=== PATIENT | female | born 1945 | race Caucasian/White ===

== ENCOUNTER → 2016-07-15 10:30 | Outpatient (CLI) | payer MEDICARE, OTHER ==
[2009-11-28 12:05] VITALS: BMI 31.5
== END | disposition home or self-care (01) ==
LOC: D.RAD 10:30 → D.RT 11:00
DX: D86.9 Sarcoidosis, unspecified (principal)

== ENCOUNTER → 2016-09-23 07:52 | Outpatient (CLI) | payer MEDICARE, OTHER ==
[2009-11-28 12:05] VITALS: BMI 31.5
[2016-09-23 08:29] LABS: CREATININE - SERUM 1.1 mg/dL (0.6-1.3)
== END | disposition home or self-care (01) ==
LOC: D.CT 07:52
PROVIDERS: Family Medicine
DX: R11.2 Nausea with vomiting, unspecified (principal)

== ENCOUNTER → 2017-03-29 16:58 | Outpatient (CLI) | payer MEDICARE, OTHER ==
[2009-11-28 12:05] VITALS: BMI 31.5
== END | disposition home or self-care (01) ==
LOC: D.MAMMO 15:30
DX: Z12.31 Encounter for screening mammogram for malignant neoplasm of breast (principal)

== ENCOUNTER → 2017-06-21 09:19 | Outpatient (CLI) | payer MEDICARE, OTHER ==
[2009-11-28 12:05] VITALS: BMI 31.5
== END | disposition home or self-care (01) ==
LOC: D.RT 09:19
DX: D86.9 Sarcoidosis, unspecified (principal)

== ENCOUNTER → 2017-12-27 09:24 | Outpatient (CLI) | payer MEDICARE, OTHER ==
[2009-11-28 12:05] VITALS: BMI 31.5
== END | disposition home or self-care (01) ==
LOC: D.RT 09:24
DX: D86.9 Sarcoidosis, unspecified (principal)

== ENCOUNTER → 2018-06-29 09:45 | Outpatient (CLI) | payer MEDICARE, OTHER ==
[2009-11-28 12:05] VITALS: BMI 31.5
== END | disposition home or self-care (01) ==
LOC: D.RT 09:45
PROVIDERS: ATTEND Internal Medicine Pulmonary Disease
DX: D86.9 Sarcoidosis, unspecified (principal)

== ENCOUNTER → 2018-06-29 15:51 | Outpatient (CLI) | payer MEDICARE, OTHER ==
[2009-11-28 12:05] VITALS: BMI 31.5
== END | disposition home or self-care (01) ==
LOC: D.MAMMO 11:15
PROVIDERS: ATTEND Clinical Nurse Specialist Adult Health
DX: Z12.31 Encounter for screening mammogram for malignant neoplasm of breast (principal)

== ENCOUNTER 2019-07-31 13:43 | Inpatient (IN) | payer MEDICARE, OTHER ==
[~2019-07-31] VITALS: Ht 157.5 cm; Wt 67.5 kg
[2019-07-31 14:24] LABS: BASOPHILS 0 % (0-2); EOSINOPHILS 0.5 % (0-7); HEMATOCRIT 39.6 % (36.0-48.0); HEMOGLOBIN 12.7 g/dL (12-16); IMMATURE GRANULOCYTES 0.5 % (0-5); LYMPHOCYTES 13.8 % (15-50); MCHC 32.1 g/dL (31.0-37.0); MCV 90.4 fL (80.0-100.0); MEAN PLATELET VOLUME 10.6 fL (7.4-10.4); MONOCYTES 6.4 % (2-11); NEUTROPHILS 78.8 % (40-80); PLATELET COUNT 75 10x3/uL (130-400); RBC 4.38 10x6/uL (4.00-5.40); RDW 15.1 % (11.5-14.5); WBC 2.2 10x3/uL (4.8-10.8)
[2019-07-31] MEDS ORDERED: TOPROL XL50 MG PO (14:39)
[2019-07-31] MEDS ORDERED: GLUCOPHAGE1000 MG PO (14:39)
[2019-07-31] MEDS ORDERED: PREDNISONE5 MG PO (14:40)
[2019-07-31] MEDS ORDERED: ZYLOPRIM100 MG PO (14:40)
[2019-07-31 14:41] LABS: APTT 30.1 SECONDS (22.8-39.4); INR 1.04 (0.85-1.17); PROTIME 13.6 SECONDS (11.6-15.0)
[2019-07-31] MEDS ORDERED: CRESTOR5 MG PO (14:41)
[2019-07-31] MEDS ORDERED: PLAVIX75 MG PO (14:41)
[2019-07-31] MEDS ORDERED: VITAMIN D1000 UNIT PO (14:41)
[2019-07-31] MEDS ORDERED: ZOLOFT50 MG PO (14:41)
[2019-07-31] MEDS ORDERED: ASPIRIN81 MG PO (14:42)
[2019-07-31] MEDS ORDERED: ULTRAM50 MG PO (14:42)
[2019-07-31] MEDS ORDERED: ZOFRAN ODT4 MG/UDTAB PO (14:42)
[2019-07-31] MEDS ORDERED: BUMEX2 MG PO (14:43)
[2019-07-31 14:45] LABS: PLATELET ESTIMATE DECREASED
[2019-07-31 14:46] LABS: ROULEAUX OCC
[2019-07-31 14:57] LABS: CALC OSMOLALITY 276 mosm/kg (275-300); CALCIUM 9.1 mg/dL (8.5-10.1); CARBON DIOXIDE 27.5 mmol/L (21.0-32.0); CHLORIDE - SERUM 99 mmol/L (98-107); CREATININE - SERUM 1.5 mg/dL (0.6-1.3); GLUCOSE 166 mg/dL (74-106); POTASSIUM - SERUM 3.7 mmol/L (3.5-5.1); SODIUM 136 mmol/L (136-145); UREA NITROGEN 16 mg/dL (7-18); eGFR NON AFRICAN AMERICAN 36 mL/min (90-120)
[2019-07-31 15:07] LABS: ALBUMIN 3.3 g/dL (3.4-5.0); ALKALINE PHOSPHATASE 58 U/L (30-120); ALT (SGPT) 60 U/L (10-68); BILIRUBIN - TOTAL 0.74 mg/dL (0.2-1.3); CKMB 0.2 U/L (0.0-3.6); CREATINE KINASE 40 UL (21-215); PROTEIN - SERUM 6.1 g/dL (6.4-8.2); TROPONIN-I < 0.017 ng/mL (0.000-0.060)
[2019-07-31 16:27] LABS: GLUCOSE NEGATIVE (NEGATIVE); NITRITE NEGATIVE (NEGATIVE); UROBILINOGEN NORMAL (NORMAL)
[2019-07-31 16:28] LABS: BILIRUBIN NEGATIVE (NEGATIVE); KETONE NEGATIVE (NEGATIVE); RED CELLS - URINE 0-5 /hpf (0-5); WHITE CELLS - URINE >50 /hpf (NEGATIVE)
[2019-07-31 16:29] LABS: BACTERIA MODERATE /hpf (NEGATIVE); EPITHELIAL CELLS 0-5 /hpf (0-5)
[2019-07-31 16:41] VITALS: BP 152/49
--- NOTE | 2019-07-31 18:25 | NUR ---
lEVAQUIN 750MG 30ML INFUSED, TRANSFERRED WITH IT INFUSING. LR ABOUT 300 INFUSED IN ER TRANSFERRED WITH IT INFUSING.
--- NOTE | 2019-07-31 18:48 | NUR ---
PT ARRIVED ON UNIT VIA STRETCHER ESCORTED BY ER NURSE AND SPOUSE. IV TO LEFT FA SALINE LOCKED. RE-STARTED BOLUS OF LR AND LEVOQUIN.
--- NOTE | 2019-07-31 19:00 | NUR ---
GAVE TURKEY SANDWICH TRAY...PT ATE 1/2 SANDWICH.
--- NOTE | 2019-07-31 19:10 | NUR ---
SCD'S PLACED ON BLE PER ORDER. PLACED YELLOW GOWN, GRIPPER SOCKS AND TURNED ON BED ALARM FOR FALL PRECAUTIONS.
--- NOTE | 2019-07-31 19:20 | NUR ---
TELEMETRY PLACED PER ORDER. PT READING [address] AT THIS ASSESSMENT.
--- NOTE | 2019-07-31 19:34 | NUR ---
MAG LEVEL 1.5 REQUIRING COVERAGE WITH 400 MG MAGOX PO Q4HR X2 DOSES. GAVE FIRST DOSE NOW.
--- NOTE | 2019-07-31 19:40 | NUR ---
GAVE TYLENOL 650 MG PO AND ZOFRAN 4 MG IVP PER REQUEST FOR CHILLS AND NAUSEA. FSBS 158 THIS CHECK...HELD SLIDING SCALE COVERAGE FOR NOW...PT TOOK METFORMIN AT HOME AND HAVING LIMITED INTAKE.
--- NOTE | 2019-07-31 19:50 | NUR ---
MOST RECENT LACTIC ACID LEVEL 3.6 ....NOTIFIED FLAQUITO SCHMITT IN PERSON SHE IS ON FLOOR ROUNDING ON PTS.
[2019-07-31 19:52] VITALS: BP 134/50; BMI 25.3
[2019-07-31] MEDS ORDERED: VITAMIN B-12500 MCG PO (20:01)
--- NOTE | 2019-07-31 20:05 | NUR ---
LAILA FROM ADMISSIONS HERE TO LOCK UP PTS WALLET. WITNESSED CONTENTS TO BE LOCKED UP WITH HER AND PATIENT.
--- NOTE | 2019-07-31 20:10 | NUR ---
HOME MED REC RECONCILLED. PAGED CA TO REVIEW.
--- NOTE | 2019-07-31 20:35 | NUR ---
ASSISTED UP TO VOID. POSITIONED BACK IN BED FOR COMFORT.
[2019-07-31 20:37] VITALS: BP 137/51
--- NOTE | 2019-07-31 20:41 | NUR ---
ADMISSION ASSESSMENT AND HISTORY COMPLETE.
--- NOTE | 2019-07-31 21:21 | NUR ---
HS MEDICATIONS GIVEN. ALSO GAVE JELLO FOR SNACK. WILL CONTINUE TO MONITOR FOR NEEDS.
[2019-07-31 21:41] LABS: CKMB 0.3 U/L (0.0-3.6); CREATINE KINASE 35 UL (21-215); TROPONIN-I < 0.017 ng/mL (0.000-0.060)
[2019-08-01 00:50] VITALS: BP 124/57
[2019-08-01 02:47] LABS: HEMATOCRIT 33.8 % (36.0-48.0); MCH 29.3 pg (26.0-34.0); MCHC 32.5 g/dL (31.0-37.0); MCV 90.1 fL (80.0-100.0); MEAN PLATELET VOLUME 11.1 fL (7.4-10.4); RBC 3.75 10x6/uL (4.00-5.40); RDW 15.2 % (11.5-14.5)
[2019-08-01 02:48] LABS: PLATELET COUNT 57 10x3/uL (130-400)
[2019-08-01 02:51] LABS: WBC 1.1 10x3/uL (4.8-10.8)
[2019-08-01 02:58] LABS: ALBUMIN 2.7 g/dL (3.4-5.0); ALKALINE PHOSPHATASE 54 U/L (30-120); ALT (SGPT) 50 U/L (10-68); BILIRUBIN - TOTAL 0.73 mg/dL (0.2-1.3); CALC OSMOLALITY 273 mosm/kg (275-300); CALCIUM 8.3 mg/dL (8.5-10.1); CARBON DIOXIDE 28.2 mmol/L (21.0-32.0); CHLORIDE - SERUM 102 mmol/L (98-107); CKMB 0.3 U/L (0.0-3.6); CREATINE KINASE 38 UL (21-215); CREATININE - SERUM 1.3 mg/dL (0.6-1.3); GLUCOSE 140 mg/dL (74-106); MAGNESIUM - SERUM 1.3 mg/dL (1.8-2.4); POTASSIUM - SERUM 4.2 mmol/L (3.5-5.1); PROTEIN - SERUM 5.5 g/dL (6.4-8.2); SODIUM 135 mmol/L (136-145); UREA NITROGEN 17 mg/dL (7-18); eGFR NON AFRICAN AMERICAN 42 mL/min (90-120)
[2019-08-01 03:03] LABS: TROPONIN-I < 0.017 ng/mL (0.000-0.060)
[2019-08-01 03:32] LABS: BASOPHILS 2 % (0-2); LYMPHOCYTES 24 % (15-50); MONOCYTES 2 % (2-11); NEUTROPHILS 56 % (40-80); PLATELET ESTIMATE DECREASED
--- NOTE | 2019-08-01 04:00 | NUR ---
WBC 1.1 AT LAST LAB CHECK REQUIRING FOR PT TO BE PLACED IN REVERSE ISOLATION. ORDER PLACED PER PROTOCAL AND SIGNAGE PLACED ON DOOR.
--- NOTE | 2019-08-01 04:18 | NUR ---
MAG LEVEL 1.3 AT LAST LAB CHECK REQUIRING COVERAGE WITH 400 MG MAG OX PO Q4HR X4 DOSES. FIRST DOSE GIVEN. WILL PASS ALONG IN REPORT THE NEED FOR NEXT DOSES AT 0815, 1215, AND 1615.
[2019-08-01 06:48] VITALS: BP 150/62
[2019-08-01 08:24] VITALS: BP 116/48
[2019-08-01 09:04] LABS: CKMB 0.3 U/L (0.0-3.6); CREATINE KINASE 41 UL (21-215); TROPONIN-I < 0.017 ng/mL (0.000-0.060)
--- NOTE | 2019-08-01 09:18 | NUR ---
SHE IS ALERT, TALKING. IN REVERSE ISOLATION WBC 1.1 TODAY. THE CALL LIGHT IS WITHIN REACH, THE BED ALARM IS ON.
[2019-08-01 10:20] VITALS: BMI 25.9
[2019-08-01 12:14] VITALS: BP 108/36
[2019-08-01 15:43] VITALS: Ht 157.5 cm; Wt 67.5 kg
[2019-08-01 16:45] VITALS: BP 150/66
[2019-08-01 20:57] VITALS: BP 120/45
[2019-08-02] VITALS (7 sets, daily range): BP systolic 98–151; BP diastolic 34–76
--- NOTE | 2019-08-02 06:55 | NUR ---
ALERT AND ORIENTED. C/O PAIN. NO S/S OF ACUTE DISTRESS NOTED. HAVING NAUSEA THIS AM. ON NEUTROPENIC PRECAUTIONS. IV TO LEFT FOREARM, NS INFUSING @ 125ML/HR. SITE PATENT WITHOUT REDNESS OR SWELLING. ELEVATED TEMP THIS AM OF 101.9, BP 130/51, HR 104, R 22, AND O2 97% RA. NOTIFIED CA HIRSCH APN OF VITALS. SHE ORDERED LACTIC ACID AND CHEST XR. DENIES ANY NEEDS AT THIS TIME. CALL LIGHT IN REACH. WILL CONTINUE TO MONITOR.
--- NOTE | 2019-08-02 08:00 | NUR ---
GAVE PATIENT TYLENOL FOR PAIN AND FEVER. CRITICAL LAB THIS AM, PLATELETS OF 37. NOTIFIED DR. VEGA.
[2019-08-02 09:09] LABS: BASOPHILS 0.5 % (0-2); EOSINOPHILS 0 % (0-7); HEMATOCRIT 34.3 % (36.0-48.0); IMMATURE GRANULOCYTES 1.4 % (0-5); LYMPHOCYTES 8.9 % (15-50); MCH 28.7 pg (26.0-34.0); MCHC 32.1 g/dL (31.0-37.0); MCV 89.6 fL (80.0-100.0); MEAN PLATELET VOLUME 11.2 fL (7.4-10.4); MONOCYTES 3.3 % (2-11); NEUTROPHILS 85.9 % (40-80); RBC 3.83 10x6/uL (4.00-5.40); RDW 15.3 % (11.5-14.5)
[2019-08-02 09:10] LABS: WBC 2.1 10x3/uL (4.8-10.8)
[2019-08-02 09:12] LABS: PLATELET COUNT 37 10x3/uL (130-400)
[2019-08-02 09:21] LABS: ALBUMIN 2.6 g/dL (3.4-5.0); BILIRUBIN - TOTAL 0.73 mg/dL (0.2-1.3); CALCIUM 7.4 mg/dL (8.5-10.1); CARBON DIOXIDE 27.2 mmol/L (21.0-32.0); CREATININE - SERUM 1.1 mg/dL (0.6-1.3); MAGNESIUM - SERUM 1.4 mg/dL (1.8-2.4); PROTEIN - SERUM 5.6 g/dL (6.4-8.2)
[2019-08-02 09:22] LABS: ANION GAP 10.1 mmol/L (8-16); POTASSIUM - SERUM 3.3 mmol/L (3.5-5.1)
[2019-08-02 09:34] LABS: PLATELET ESTIMATE DECREASED
[2019-08-02 10:10] LABS: HEPATITIS C ANTIBODY <0.1 S/CO RAT (0.0-0.9)
--- NOTE | 2019-08-02 12:54 | MORECARE ---
CASE MANAGEMENT DISCHARGE SUMMARY PATIENT: RODRIGO REVELES UNIT: [id number] ADM DATE: 07/31/19 AGE: 74 : 45 SEX: F ROOM/BED: D.2207 AUTHOR: EMELIA RUDOLPH PHYSICIAN: REFERRING PHYSICIAN: MYRIAM TRIPLETT MD DATE OF SERVICE: 08/02/19 Discharge Plan Patient Name: RODRIGO REVELES [facility] [facility] 1945 Planned Disposition: Home or Self Care Anticipated Discharge Date: Discharge Date: Expected LOS: Initial Reviewer: [email or web address] Initial Review Date: 07/31/2019 Generated: 08/02/19 1:54 pm DCPIA - Discharge Planning Initial Assessment Updated by [email or web address]: Radha Cornell on 08/02/19 12:54 pm * Is the patient Alert and Oriented? Yes * How many steps to enter\exit or inside your home? 2/RAMP * PCP SHOAIB * Pharmacy [facility] * Preadmission Environment Home with Family * ADLs Independent * Equipment Cane Glucometer Rolling Walker * List name and contact numbers for known caregivers / representatives who currently or will assist patient after discharge: IRISH REVELES (SPOUSE) [phone] * Verbal permission to speak to the caregivers and representatives has been obtained from the patient. N/A * Community resources currently utilized None * Additional services required to return to the preadmission environment? No * Can the patient safely return to the preadmission environment? Yes * Has this patient been hospitalized within the prior 30 days at any hospital? No Patient Name: RODRIGO REVELES Page 38315 at 1254 All edits/amendments must be made on the electronic document DICTATION DATE: 08/02/19 1254 CHEMICAL LABORATORY CHIEF: CHAVEZ 08/02/19 1254 RPT#: [id number] DC DATE: STATUS: ADM IN [facility] [address] [place] [address] END OF REPORT
--- NOTE | 2019-08-02 13:09 | MORECARE ---
CASE MANAGEMENT DISCHARGE SUMMARY PATIENT: RODRIGO REVELES UNIT: [id number] ADM DATE: 07/31/19 AGE: 74 : 45 SEX: F ROOM/BED: D.8665 AUTHOR: EMELIA RUDOLPH PHYSICIAN: REFERRING PHYSICIAN: MYRIAM TRIPLETT MD DATE OF SERVICE: 08/02/19 Discharge Plan Patient Name: RODRIGO REVELES Facility: [facility]:[place] : 1945 Planned Disposition: Home or Self Care Anticipated Discharge Date: Discharge Date: Expected LOS: Initial Reviewer: [email or web address] Initial Review Date: 07/31/2019 Generated: 08/02/19 2:09 pm Comments DCP- Discharge Planning Updated by [id number]: Radha Cornell on 08/02/19 12:[address] Patient Name: RODRIGO REVELES Admission Status: ER Accout number: [id number] Admission Date: 07-31-2019 : 1945 Admission Diagnosis:ACUTE PYELONEPHRITIS Attending: MYRIAM TRIPLETT Current LOS: 2 Anticipated DC Date: Planned Disposition: Home or Self Care Primary Insurance: MEDICARE A & B Discharge Planning Comments: CM met with patient to complete initial dc planning assessment. CM educated patient on the CM role and verbal consent given by patient to complete assessment. Patient lives at home with her spouse where she is independent with her care. At discharge patient plans to return home and feels this is a safe discharge. CM discussed availability of home health, rehab services, and medical equipment. She has a cane & a walker but does not use them. She also has a glucometer that she uses. 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 She did stated that Dr Randle took out a kidney stone on May 22. She has also had multiple dental procedures (teeth pulled, crowns, partials) last month at [facility] ( Dr Wood). She stated that she has been on 3 different abx. I let Emma know about her dental procedure.Patient denied known discharge needs at this time. CM will continue to follow and will assist as needed with dc plans/needs. Records Management Assistant: Radha Cornell DCPIA - Discharge Planning Initial Assessment Updated by [email or web address]: Radha Cornell on 08/02/19 12:54 pm * Is the patient Alert and Oriented? Yes * How many steps to enter\exit or inside your home? 2/RAMP * PCP SHOAIB * Pharmacy [facility] * Preadmission Environment Home with Family * ADLs Independent * Equipment Cane Glucometer Rolling Walker * List name and contact numbers for known caregivers / representatives who currently or will assist patient after discharge: IRISH REVELES (SPOUSE) [phone] * Verbal permission to speak to the caregivers and representatives has been obtained from the patient. N/A * Community resources currently utilized None * Additional services required to return to the preadmission environment? No * Can the patient safely return to the preadmission environment? Yes * Has this patient been hospitalized within the prior 30 days at any hospital? No Last DP export: 08/02/19 11:54 a Patient Name: RODRIGO REVELES Page 28599 at 1309 All edits/amendments must be made on the electronic document DICTATION DATE: 08/02/19 1309 SUBASSEMBLY SUPERVISOR: CHAVEZ 08/02/19 1309 RPT#: [id number] DC DATE: STATUS: ADM IN [facility] [address] [place] [address] END OF REPORT
--- NOTE | 2019-08-02 13:14 | NUR ---
I have reviewed this patient and I concur with the Shift Assessment completed by the Licensed Practical Nurse today this shift.
[2019-08-02 15:01] LABS: APTT 40.2 SECONDS (22.8-39.4)
[2019-08-02 15:02] LABS: INR 1.07 (0.85-1.17); PROTIME 13.9 SECONDS (11.6-15.0)
[2019-08-02 15:26] LABS: NITRITE NEGATIVE (NEGATIVE)
[2019-08-02 15:27] LABS: BILIRUBIN NEGATIVE (NEGATIVE); GLUCOSE NEGATIVE (NEGATIVE); KETONE NEGATIVE (NEGATIVE); UROBILINOGEN NORMAL (NORMAL)
[2019-08-02 15:28] LABS: BACTERIA FEW /hpf (NEGATIVE); EPITHELIAL CELLS 0-5 /hpf (0-5); RED CELLS - URINE 0-5 /hpf (0-5); WHITE CELLS - URINE 0-5 /hpf (NEGATIVE)
[2019-08-02 15:40] LABS: D-DIMER-QUANTITATIVE 2.94 ug/mLFEU (0.20-0.54)
--- NOTE | 2019-08-02 15:51 | NUR ---
PATIENT HAS A CRITICAL D-DIMER OF 2.94, NOTIFIED DR. VEGA.
--- NOTE | 2019-08-02 19:01 | NUR ---
RESTING IN BED, A&O. NO C/O PAIN. NO S/S OF ACUTE DISTRESS NOTED. DENIES ANY NEEDS AT THIS TIME. CALL LIGHT IN REACH. WILL CONTINUE TO MONITOR.
[2019-08-03] VITALS (7 sets, daily range): BP systolic 97–134; BP diastolic 34–56
[2019-08-03 07:36] LABS: BASOPHILS 1.3 % (0-2); EOSINOPHILS 0 % (0-7); HEMATOCRIT 30.7 % (36.0-48.0); HEMOGLOBIN 10.1 g/dL (12-16); IMMATURE GRANULOCYTES 0.6 % (0-5); LYMPHOCYTES 18.2 % (15-50); MCH 28.9 pg (26.0-34.0); MCHC 32.9 g/dL (31.0-37.0); MONOCYTES 9.4 % (2-11); NEUTROPHILS 70.5 % (40-80); RBC 3.49 10x6/uL (4.00-5.40); RDW 15.4 % (11.5-14.5)
[2019-08-03 07:43] LABS: PLATELET COUNT 29 10x3/uL (130-400); WBC 1.6 10x3/uL (4.8-10.8)
[2019-08-03 07:53] LABS: ALBUMIN 2.2 g/dL (3.4-5.0); ANION GAP 9.2 mmol/L (8-16); BILIRUBIN - TOTAL 0.54 mg/dL (0.2-1.3); CALCIUM 7.1 mg/dL (8.5-10.1); CARBON DIOXIDE 24.9 mmol/L (21.0-32.0); MAGNESIUM - SERUM 1.4 mg/dL (1.8-2.4); POTASSIUM - SERUM 3.1 mmol/L (3.5-5.1); PROTEIN - SERUM 4.9 g/dL (6.4-8.2)
--- NOTE | 2019-08-03 09:20 | NUR ---
SHE IS NAUSEATED, ZOFRAN PRN GIVEN. HER WBC IS 1.6 AND PLT 29. JENNA FABRICATION TECHNICIAN NOTIFIED OF THE LABS. THE CALL LIGHT IS WITHIN REACH AND HER IS AT THE BEDSIDE.
--- NOTE | 2019-08-03 16:27 | MORECARE ---
CASE MANAGEMENT DISCHARGE SUMMARY PATIENT: RODRIGO REVELES UNIT: [id number] ADM DATE: 07/31/19 AGE: 74 : 45 SEX: F ROOM/BED: D.2207 AUTHOR: EMELIA RUDOLPH PHYSICIAN: REFERRING PHYSICIAN: MYRIAM TRIPLETT MD DATE OF SERVICE: 08/03/19 Discharge Plan Patient Name: RODRIGO REVELES [facility]:[place] : 1945 Planned Disposition: Home or Self Care Anticipated Discharge Date: Discharge Date: Expected LOS: Initial Reviewer: [email or web address] Initial Review Date: 07/31/2019 Generated: 08/03/19 5:27 pm Comments DCP- Discharge Planning Updated by [email or web address]: Malaika Amaro on 08/03/19 3:[address] CM met with patient regarding DC needs/plans. Patient states she lives independently with her . PCP: Dr. Boyer. Pharmacy: [facility]. DME: walker, cane (does not use). Emergency contact: Irish Walker () [phone]. Denies need of HHS, Rehab, SNF. At time of DC, the patient's Irish Walker ([phone]) will drive her home. CM will assist PRN with DC plans. DCP- Discharge Planning Updated by [email or web address]: Radha Cornell on 08/02/19 12:[address] Patient Name: RODRIGO REVELES Admission Status: ER Accout number: [id number] Admission Date: 07-31-2019 : 1945 Admission Diagnosis:ACUTE PYELONEPHRITIS Attending: MYRIAM TRIPLETT Current LOS: 2 Anticipated DC Date: Planned Disposition: Home or Self Care Primary Insurance: MEDICARE A & B Discharge Planning Comments: CM met with patient to complete initial dc planning assessment. CM educated patient on the CM role and verbal consent given by patient to complete assessment. Patient lives at home with her spouse where she is independent with her care. At discharge patient plans to return home and feels this is a safe discharge. CM discussed availability of home health, rehab services, and medical equipment. She has a cane & a walker but does not use them. She also has a glucometer that she uses. 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 She did stated that Dr Randle took out a kidney stone on May 22. She has also had multiple dental procedures (teeth pulled, crowns, partials) last month at [facility] ( Dr Wood). She stated that she has been on 3 different abx. I let Emma know about her dental procedure.Patient denied known discharge needs at this time. CM will continue to follow and will assist as needed with dc plans/needs. Sales Product Specialist: Radha Cornell DCPIA - Discharge Planning Initial Assessment Updated by [id number]: Radha Cornell on 08/02/19 12:54 pm * Is the patient Alert and Oriented? Yes * How many steps to enter\exit or inside your home? 2/RAMP * PCP SHOAIB * Pharmacy [facility] * Preadmission Environment Home with Family * ADLs Independent * Equipment Cane Glucometer Rolling Walker * List name and contact numbers for known caregivers / representatives who currently or will assist patient after discharge: IRISH REVELES (SPOUSE) [phone] * Verbal permission to speak to the caregivers and representatives has been obtained from the patient. N/A * Community resources currently utilized None * Additional services required to return to the preadmission environment? No * Can the patient safely return to the preadmission environment? Yes * Has this patient been hospitalized within the prior 30 days at any hospital? No Last DP export: 08/02/19 12:09 p Patient Name: RODRIGO REVELES Page 10666 at 1627 All edits/amendments must be made on the electronic document DICTATION DATE: 08/03/191626 SOLUTIONS SPECIALIST: CHAVEZ 08/03/191626 RPT#: [id number] LA DATE: STATUS: ADM IN [facility] [address] [place] [address] END OF REPORT
--- NOTE | 2019-08-03 19:46 | NUR ---
PT SITTING UP ON SIDE OF BED AWAKE ALERT AND ORIENTED x4. NO SIGNS OF DISTRESS NOTED. RESPIRATRIONS EVEN AND UNLABORED. PT ENCOURAGED TO CALL FOR HELP WHEN GETTING IN AND OUT OF BED CALL LIGHT WITH IN REACH. WILL CONTINUE TO MONITOR
[2019-08-04] VITALS (7 sets, daily range): BP systolic 102–136; BP diastolic 27–87
--- NOTE | 2019-08-04 04:17 | NUR ---
PTS PERIPHERAL IV INFLATRATED TO LEFT ARM. IV REMOVED WITH END STILL INTACT. NO SIGNS OF DISTRESS NOTED AT THIS TIME. PRN PAIN MEDICATION GIVEN FOR HEADACHE. IV RESITED TO RIGHT FOREARM PT TOLERATED WELL. CALL LIGHT WITH IN REACH AND BED IS INLOWEST POSITION. WILL CONTINUE TO MONITOR
[2019-08-04 06:52] LABS: BASOPHILS 1.1 % (0-2); EOSINOPHILS 0.3 % (0-7); HEMATOCRIT 31.8 % (36.0-48.0); HEMOGLOBIN 10.4 g/dL (12-16); IMMATURE GRANULOCYTES 1.3 % (0-5); LYMPHOCYTES 12.5 % (15-50); MCH 28.7 pg (26.0-34.0); MCHC 32.7 g/dL (31.0-37.0); MCV 87.6 fL (80.0-100.0); MEAN PLATELET VOLUME 12.9 fL (7.4-10.4); MONOCYTES 6.6 % (2-11); NEUTROPHILS 78.2 % (40-80); RBC 3.63 10x6/uL (4.00-5.40); RDW 15.6 % (11.5-14.5)
[2019-08-04 06:56] LABS: PLATELET COUNT 42 10x3/uL (130-400); WBC 3.8 10x3/uL (4.8-10.8)
[2019-08-04 07:04] LABS: ALBUMIN 2.2 g/dL (3.4-5.0); BILIRUBIN - TOTAL 0.56 mg/dL (0.2-1.3); CARBON DIOXIDE 24.6 mmol/L (21.0-32.0); CREATININE - SERUM 1.2 mg/dL (0.6-1.3); PROTEIN - SERUM 4.6 g/dL (6.4-8.2)
[2019-08-04 07:37] LABS: MAGNESIUM - SERUM 1.9 mg/dL (1.8-2.4)
[2019-08-04 07:38] LABS: CALCIUM 6.8 mg/dL (8.5-10.1); POTASSIUM - SERUM 2.6 mmol/L (3.5-5.1)
--- NOTE | 2019-08-04 07:40 | NUR ---
PT IS RESTING IN BED WITH EYES OPEN. RESPIRATIONS ARE EVEN AND UNLABORED. PT IS AAO X 4. O2 VIA NC @ 2L. RIGHT FA PIV INFUSING WITHOUT DIFFICULTY. NEUTROPENIC ISOLATION PRECAUTIONS ARE IN PLACE. PT REPORTS SLIGHT NAUSEA. ZOFRAN INFUSING PER ORDER. PT DENIES HAVING HAD RECENT BM AND DENIES HAVING PASSED GAS "RECENTLY" PT REPORTS LAST BM ON 08/01/19. BS ARE HYPOACTIVE X 4 AND PT REPORTS TENDERNESS UPON PALPATION TO LUQ. BED IS IN THE LOWEST POSITION. CALL LIGHT AND BEDSIDE TABLE ARE WITHIN REACH. SIDE RAILS X 2. PT DENIES FURTHER NEEDS. WILL CONT TO MONITOR.
--- NOTE | 2019-08-04 10:08 | NUR ---
Nutrition follow-up: Diet: ADA consistent CHO PO intake 25-50% of meals Labs reviewed WT: 141# Will continue to provide food choices and honor food preferences within diet restrcitons. Will offer Glucerna Shake with meals. RDN following.
--- NOTE | 2019-08-04 11:15 | NUR ---
PT REPORTS NAUSEA AND SMALL AMOUNT OF EMESIS. PT REQUESTS DISSOLVABLE ZOFRAN. SEE EMAR.
[2019-08-04 11:58] LABS: PLATELET ESTIMATE DECREASED
[2019-08-04 12:00] LABS: ROULEAUX OCC
--- NOTE | 2019-08-04 12:32 | NUR ---
PER INFECTION CONTROL. PT TO REMAIN IN ISOLATION AND CONTINUE NEUTROPENIC PRECAUTIONS PLUS ADD GOGGLES/FACE SHIELD UNTIL COVID 19 TEST RESULTS RETURN. WILL CHANGE ISOLATION ACCORDINGLY.
--- NOTE | 2019-08-04 20:00 | NUR ---
PATIENT RESTING IN BED WATCHING TV. NO S/S OF ACUTE DISTRESS. NO C/O AT THIS TIME. PATIENT HAS 2L OR O2 NASAL CANNULA. PATIENT HAS RIGHT FOREARM, NORMAL SALINE @ 125 ML/HR. IV IS PATENT WITHOUT REDNESS, SWELLING, OR TENDERNESS. PATIENT HAS TELEMETRY: 89 SINUS RYTHM. PATIENT IS IN REVERSE ISOLATION. PATIENT IS A PARTIAL ASSIST TO THE BATHROOM. CALL LIGHT WITHIN REACH. WILL CONTINUE TO MONITOR.
--- NOTE | 2019-08-05 02:56 | NUR ---
I have reviewed this patient and I concur with the Shift Assessment completed by the Licensed Practical Nurse today this shift.
[2019-08-05 04:00] VITALS: BP 128/53
--- NOTE | 2019-08-05 07:10 | NUR ---
REC'D SITTING IN CHAIR IN ROOM AWAKE AND ALERT. RESP EVEN AND UNLABORED WITH NO DISTRESS NOTED. CAN EXPRESS NEEDS AND WANTS. NO C/O NOTED OR VOICED. ASSESSMENT COMPLETED. C/L IN REACH AT BEDSIDE.
[2019-08-05 08:12] LABS: ALBUMIN 1.9 g/dL (3.4-5.0); BILIRUBIN - TOTAL 0.57 mg/dL (0.2-1.3); CARBON DIOXIDE 22.5 mmol/L (21.0-32.0); CREATININE - SERUM 1.2 mg/dL (0.6-1.3); PROTEIN - SERUM 4.6 g/dL (6.4-8.2)
[2019-08-05 08:13] LABS: ANION GAP 10.7 mmol/L (8-16); MAGNESIUM - SERUM 1.4 mg/dL (1.8-2.4); POTASSIUM - SERUM 3.2 mmol/L (3.5-5.1)
[2019-08-05 08:15] LABS: CALCIUM 6.6 mg/dL (8.5-10.1)
[2019-08-05 08:30] LABS: BASOPHILS 2.7 % (0-2); EOSINOPHILS 0.7 % (0-7); HEMATOCRIT 28.2 % (36.0-48.0); HEMOGLOBIN 9.4 g/dL (12-16); IMMATURE GRANULOCYTES 0.7 % (0-5); LYMPHOCYTES 36.1 % (15-50); MCH 28.9 pg (26.0-34.0); MCHC 33.3 g/dL (31.0-37.0); MCV 86.8 fL (80.0-100.0); MEAN PLATELET VOLUME 11.6 fL (7.4-10.4); MONOCYTES 13.8 % (2-11); PLATELET COUNT 50 10x3/uL (130-400); RBC 3.25 10x6/uL (4.00-5.40); RDW 15.8 % (11.5-14.5); WBC 4.4 10x3/uL (4.8-10.8)
[2019-08-05 08:41] VITALS: BP 96/34
[2019-08-05 08:46] LABS: PLATELET ESTIMATE DECREASED
--- NOTE | 2019-08-05 11:43 | NUR ---
C/O MIDDLE BACK PAIN MEDICATED WITH ULTRAM PER ORDERS. C/L IN REACH AT BEDSIDE.
[2019-08-05 12:16] VITALS: BP 129/47
[2019-08-05 16:15] VITALS: BP 106/84
--- NOTE | 2019-08-05 18:24 | NUR ---
I have reviewed this patient and I concur with the Shift Assessment completed by the Licensed Practical Nurse today this shift.
--- NOTE | 2019-08-05 19:25 | NUR ---
ASSISTED PATIENT TO AND FROM . PATIENT DENIES OTHER NEEDS AT THIS TIME. BED IN LOWEST POSITION AND CALL LIGHT WITHIN REACH. ENCOURAGED THE PATIENT TO CALL IF SHE HAS NEEDS. WILL CONTINUE TO MONITOR.
[2019-08-05 19:27] LABS: ANION GAP 11.6 mmol/L (8-16); CARBON DIOXIDE 22.9 mmol/L (21.0-32.0); CREATININE - SERUM 1.1 mg/dL (0.6-1.3); MAGNESIUM - SERUM 1.4 mg/dL (1.8-2.4); POTASSIUM - SERUM 3.5 mmol/L (3.5-5.1)
[2019-08-05 19:28] LABS: CALCIUM 6.9 mg/dL (8.5-10.1)
[2019-08-05 20:00] VITALS: BP 132/67
--- NOTE | 2019-08-05 22:20 | NUR ---
ADMINISTERED MEDS PER ORDERS. PATIENT DENIES NEEDS. WILL CONTINUE TO MONITOR.
[2019-08-06] VITALS: BP 171/81
[2019-08-06 04:00] VITALS: BP 129/49
[2019-08-06 06:26] LABS: BASOPHILS 2.3 % (0-2); EOSINOPHILS 1.8 % (0-7); HEMATOCRIT 29.8 % (36.0-48.0); HEMOGLOBIN 9.7 g/dL (12-16); LYMPHOCYTES 44.5 % (15-50); MCH 28.2 pg (26.0-34.0); MCHC 32.6 g/dL (31.0-37.0); MCV 86.6 fL (80.0-100.0); MEAN PLATELET VOLUME 11.1 fL (7.4-10.4); MONOCYTES 12.1 % (2-11); NEUTROPHILS 38.3 % (40-80); RBC 3.44 10x6/uL (4.00-5.40); RDW 16.3 % (11.5-14.5)
[2019-08-06 06:35] LABS: PLATELET COUNT 67 10x3/uL (130-400)
[2019-08-06 06:44] LABS: ANION GAP 13.3 mmol/L (8-16); BILIRUBIN - TOTAL 0.67 mg/dL (0.2-1.3); CARBON DIOXIDE 24.4 mmol/L (21.0-32.0); POTASSIUM - SERUM 3.7 mmol/L (3.5-5.1); PROTEIN - SERUM 4.5 g/dL (6.4-8.2)
[2019-08-06 07:28] LABS: PLATELET ESTIMATE DECREASED
[2019-08-06 08:10] VITALS: BP 111/44
--- NOTE | 2019-08-06 09:37 | NUR ---
RESTING IN BED, NO DISTRESS NOTED, CONFUSED THIS AM, UP TO BATHROOM WITH ASSIST OF 1, NO IV ACCESS, CONT TO MONITOR SUGARS
--- NOTE | 2019-08-06 11:30 | NUR ---
PT STATES THAT SHE FEELS SHE MAY HAVE HAD A STROKE, STATES THAT SHE HAS BEEN SEEING THINGS AND FEELS THAT SHE ISNT ABLE TO SAY WHAT SHE WANTS TO SAY, HAVING TROUBLE FINDING WORDS, IV STARTED IN R WRIST FOR ZOFRAN, PROTONIX AND SALINE,GOING TO CT, CONT TO MONITOR
[2019-08-06 12:19] VITALS: BP 163/74
[2019-08-06 15:40] LABS: ANION GAP 11.4 mmol/L (8-16); CALCIUM 7.2 mg/dL (8.5-10.1); CARBON DIOXIDE 24.9 mmol/L (21.0-32.0); CREATININE - SERUM 0.9 mg/dL (0.6-1.3); MAGNESIUM - SERUM 1.4 mg/dL (1.8-2.4); POTASSIUM - SERUM 3.3 mmol/L (3.5-5.1)
[2019-08-06 16:44] VITALS: BP 146/59
--- NOTE | 2019-08-06 19:45 | NUR ---
ASSISTED UP TO BR TO VOID. LT SIDED WEAKNESS NOTED FROM OLD CVA. GAIT IS UNSTEADY. ALERT AND ORIENTED X4. RESP IRREG. NONPROD COUGH. O2 @ 3L/NC. TELEMETRY SHOWS SR WITH RATE OF 93. SCDS BILAT. NS @ 75 MLHR INFUSING IN RT FOREARM WITH ZOFRAN DRIP @ 4.7 MLHR. BRUISES NOTED TO BUE. SR ELEVATED X2. CL IN REACH. DENIES PAIN.
[2019-08-06 20:00] VITALS: BP 150/59
[2019-08-07] VITALS (7 sets, daily range): BP systolic 131–152; BP diastolic 53–76
[2019-08-07 04:52] LABS: BASOPHILS 0.9 % (0-2); EOSINOPHILS 0.9 % (0-7); HEMATOCRIT 27.7 % (36.0-48.0); HEMOGLOBIN 9.1 g/dL (12-16); IMMATURE GRANULOCYTES 0.7 % (0-5); LYMPHOCYTES 51.4 % (15-50); MCH 28.4 pg (26.0-34.0); MCHC 32.9 g/dL (31.0-37.0); MCV 86.6 fL (80.0-100.0); MEAN PLATELET VOLUME 10.3 fL (7.4-10.4); MONOCYTES 10.8 % (2-11); NEUTROPHILS 35.3 % (40-80); PLATELET COUNT 80 10x3/uL (130-400); RDW 16.5 % (11.5-14.5); WBC 4.2 10x3/uL (4.8-10.8)
[2019-08-07 05:06] LABS: ALBUMIN 1.9 g/dL (3.4-5.0); BILIRUBIN - TOTAL 0.73 mg/dL (0.2-1.3); CARBON DIOXIDE 27.9 mmol/L (21.0-32.0); CREATININE - SERUM 0.9 mg/dL (0.6-1.3); PROTEIN - SERUM 4.7 g/dL (6.4-8.2)
[2019-08-07 05:09] LABS: ANION GAP 7.2 mmol/L (8-16); POTASSIUM - SERUM 4.1 mmol/L (3.5-5.1)
--- NOTE | 2019-08-07 06:25 | NUR ---
RESTED WELL TONIGHT. UP TO BR TO VOID SEVERAL TIMES. HAS HAD SOME NAUSEA DESPITE ZOFRAN DRIP BUT NO VOMITING. DAUGHTER AT BEDSIDE. NO DISTRESS. CL IN REACH.
--- NOTE | 2019-08-07 09:10 | EC ---
PATIENT:RORDIGO REVELES DATE OF SERVICE: 07/31/19 SEX: F MEDICAL RECORD: [id number] DATE OF : [birth year] LOCATION:D.[facility] AGE OF PATIENT: 74 ADMISSION DATE: 07/31/19 REFERRING PHYSICIAN: INTERPRETING PHYSICIAN: HUSSAIN CORDOVA MD ECHOCARDIOGRAM REPORT ECHO CHARGES 4 ECHO COMPLETE Date: 08/04/19 CLINICAL DIAGNOSIS: FEVER/SEPTIC ASSESS FOR ENDOCARDITIS ECHOCARDIOGRAPHIC MEASUREMENTS (adult normal given) AC root (d.<3.7cm) 3.6 cm LV Septum d (<1.2 cm> 1.3 cm Valve Excursion 1.7 cm LV Septum (systole) 1.4 cm Left Atria (s.<4.0cm> 2.9 cm LVPW d(<1.2cm) 1.3 cm RV (d.<2.3cm) 3.0 cm LVPW (sytole) 1.6 cm LV diastole(<5.6CM) 5.8 cm MV E-F(>70mm/sec) cm LV systole 4.8 cm LVOT Diameter 1.5 cm MV exc.(>10mm) cm Est.ejection fraction (50-75%) % DOPPLER: LVIT cm/sec A 91.0 cm/sec E 92.0 cm/sec LA cm/sec RVSP 36 mmHg LVOT 95 cm/sec AOP1/2T m/s Asc. Ao 153 cm/sec RVOT 93 cm/sec RA cm/sec PA 119 cm/sec AV Gradient Peak 9.31 mmHg AV Mean 4.95 mmHg AV Area 1.4 cm MV Gradient Peak 4.37 mmHg MV Mean 1.76 mmHg MV Area cm COMMENTS: Overhead Crane Inspector: 2 IQRA SHIRLEY Nonprofit Director: 3 Dr. Handley TAPE# PACS Pericardial Effusion N DATE OF SERVICE: Adequate 2D, color flow imaging, spectral Doppler, and M-Mode. Mild LVH. LV internal dimensions are normal. Wall motion is normal. EF greater than or equal to 55%. Aortic valve is sclerotic. No evidence of stenosis by Doppler interrogation. Left atrium is normal at 3.9 cm. Mitral valve shows no prolapse. Trace MR. Right-sided chambers are grossly normal. Mild TR. No evidence of vegetation in all 4 cardiac valves. ECHOCARDIOGRAM REPORT [id number] RODRIGO REVELES TRANSINT:[id number] Voice Confirmation ID: [id number] DOCUMENT ID: [id number] HUSSAIN CORDOVA MD at 0910 CC: [id number] DICTATION DATE: 08/04/19 1200 INSTRUCTIONAL TECHNOLOGY DIRECTOR: 08/04/19 1257 ADM IN [facility] [id number] [place] [address]
--- NOTE | 2019-08-07 12:27 | NUR ---
Rehab Note- Acute Inpatient Rehab prescreen order received. The patient is having new onset symptoms of what she had previously when she had a CVA. Has a pending Neurology consult. Will follow at this time. Thank you for this referral! Bridget Mitchell RN Clinical Liaison, [facility] Rehab
[2019-08-07 14:09] LABS: EHRLICHIA CHAFF IGG Negative (Neg:<1:64); EHRLICHIA CHAFF IGM Negative (Neg:<1:20); HGE IGG TITER Negative (Neg:<1:64); HGE IGM TITER Negative (Neg:<1:20)
[2019-08-08 03:07] LABS: RMSF IGM 0.14 index (0.00-0.89)
[2019-08-08 04:00] VITALS: BP 130/61
[2019-08-08 07:15] LABS: BASOPHILS 0.5 % (0-2); EOSINOPHILS 0.7 % (0-7); HEMATOCRIT 30.1 % (36.0-48.0); HEMOGLOBIN 9.8 g/dL (12-16); IMMATURE GRANULOCYTES 1.2 % (0-5); LYMPHOCYTES 44.3 % (15-50); MCH 28.2 pg (26.0-34.0); MCHC 32.6 g/dL (31.0-37.0); MCV 86.7 fL (80.0-100.0); MEAN PLATELET VOLUME 9.9 fL (7.4-10.4); MONOCYTES 12.7 % (2-11); NEUTROPHILS 40.6 % (40-80); RBC 3.47 10x6/uL (4.00-5.40); RDW 17.2 % (11.5-14.5); WBC 4.2 10x3/uL (4.8-10.8)
[2019-08-08 07:20] LABS: PLATELET COUNT 113 10x3/uL (130-400)
[2019-08-08 07:34] LABS: BILIRUBIN - TOTAL 0.6 mg/dL (0.2-1.3); CARBON DIOXIDE 25.6 mmol/L (21.0-32.0); CREATININE - SERUM 0.9 mg/dL (0.6-1.3); MAGNESIUM - SERUM 1.7 mg/dL (1.8-2.4)
[2019-08-08 07:50] LABS: ANION GAP 9.8 mmol/L (8-16); CALCIUM 6.6 mg/dL (8.5-10.1); PHOSPHOROUS 1.1 mg/dL (2.5-4.9); POTASSIUM - SERUM 3.4 mmol/L (3.5-5.1)
[2019-08-08 08:10] LABS: F. TULARENSIS - IGG Negative (Negative); F. TULARENSIS - IGM Negative (Negative)
[2019-08-08 08:14] VITALS: BP 123/44
[2019-08-08 12:54] VITALS: BP 148/76
--- NOTE | 2019-08-08 15:07 | NUR ---
BRUISES NOTED ON ARMS. WOUND CARE WILL MONITOR NEEDED.
--- NOTE | 2019-08-08 16:00 | MORECARE ---
CASE MANAGEMENT DISCHARGE SUMMARY PATIENT: RODRIGO REVELES UNIT: [id number] ADM DATE: 07/31/19 AGE: 74 : 45 SEX: F ROOM/BED: D.2207 AUTHOR: EMELIA RUDOLPH PHYSICIAN: REFERRING PHYSICIAN: MYRIAM TRIPLETT MD DATE OF SERVICE: 08/08/19 Discharge Plan Patient Name: RODRIGO REVELES Facility: [facility]:[place] : 1945 Planned Disposition: Home or Self Care Anticipated Discharge Date: Discharge Date: Expected LOS: Initial Reviewer: [email or web address] Initial Review Date: 07/31/2019 Generated: 08/08/19 5:00 pm Comments DCP- Discharge Planning Updated by [email or web address]: Malaika Amaro on 08/08/19 2:[address] HEADEND TECHNICIAN Rehab following progress. Patient requesting that CM come back to room 08/08, to discuss further DC plans. Patient is requesting her billfold be brought to her room today. CM contacted Missyindia, in ER to request same. Patient's wallet was brought to her room per admissions. DCP- Discharge Planning Updated by [email or web address]: Malaika Amaro on 08/03/19 3:[address] CM met with patient regarding DC needs/plans. Patient states she lives independently with her . PCP: Dr. Boyer. Pharmacy: [facility]. DME: walker, cane (does not use). Emergency contact: Irish Walker () [phone]. Denies need of HHS, Rehab, SNF. At time of DC, the patient's Irish Walker ([phone]) will drive her home. CM will assist PRN with DC plans. DCP- Discharge Planning Updated by [email or web address]: Radha Cornell on 08/02/19 12:[address] Patient Name: RODRIGO REVELES Admission Status: ER Accout number: [id number] Admission Date: 07-31-2019 : 1945 Admission Diagnosis:ACUTE PYELONEPHRITIS Attending: MYRIAM TRIPLETT Current LOS: 2 Anticipated DC Date: Planned Disposition: Home or Self Care Primary Insurance: MEDICARE A & B Discharge Planning Comments: CM met with patient to complete initial dc planning assessment. CM educated patient on the CM role and verbal consent given by patient to complete assessment. Patient lives at home with her spouse where she is independent with her care. At discharge patient plans to return home and feels this is a safe discharge. CM discussed availability of home health, rehab services, and medical equipment. She has a cane & a walker but does not use them. She also has a glucometer that she uses. 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 She did stated that Dr Randle took out a kidney stone on May 22. She has also had multiple dental procedures (teeth pulled, crowns, partials) last month at [facility] ( Dr Wood). She stated that she has been on 3 different abx. I let Emma know about her dental procedure.Patient denied known discharge needs at this time. CM will continue to follow and will assist as needed with dc plans/needs. Youth Support Worker: Radha Cornell DCPIA - Discharge Planning Initial Assessment Updated by [email or web address]: Radha Cornell on 08/02/19 12:54 pm * Is the patient Alert and Oriented? Yes * How many steps to enter\exit or inside your home? 2/RAMP * PCP SHOAIB * Pharmacy [facility] * Preadmission Environment Home with Family * ADLs Independent * Equipment Cane Glucometer Rolling Walker * List name and contact numbers for known caregivers / representatives who currently or will assist patient after discharge: IRISH REVELES (SPOUSE) [phone] * Verbal permission to speak to the caregivers and representatives has been obtained from the patient. N/A * Community resources currently utilized None * Additional services required to return to the preadmission environment? No * Can the patient safely return to the preadmission environment? Yes * Has this patient been hospitalized within the prior 30 days at any hospital? No Last DP export: 08/03/19 3:27 p Patient Name: RODRIGO REVELES Page [id number] at 1600 All edits/amendments must be made on the electronic document DICTATION DATE: 08/08/19 1600 RESEARCH CHIEF ENGINEER: CHAVEZ 08/08/19 1600 RPT#: [id number] DC DATE: STATUS: ADM IN [facility] [address] [place] [address] END OF REPORT
--- NOTE | 2019-08-08 16:02 | NUR ---
PT HAS RECIEVED A SMALL BLACK WALLET WHICH IS CONTAINING SSN CARD, GENE BANK CARD X 2, BEAR STATE X 2 CARDS, GENE CARD ENDING IN 8910, [employer] GIFT CARD, CARE CREDIT ENDING 193, [place] DRIVERS LICENSE, MEDICARE CARD, ARVEST CARD, DINORAH CARD, FAMILY DOLLAR CHECK ENDING 2359, SIGNA MEDICARE RX CARD, ISAC CARD, ENE BANK CARD, NETSPEND ENDING [phone].
--- NOTE | 2019-08-08 16:05 | NUR ---
WENT TO GET PATIENT FOR HER MRI BRAIN AND SHE STATED SHE WAS TOO NAUSEATED AND WOULD LIKE TO DO IT TOMORROW. DAYAMI WAS NOTIFIED. WE WILL DO HER SCAN ORDERED TOMORROW.
[2019-08-08 16:38] VITALS: BP 129/65
[2019-08-08 20:00] VITALS: BP 151/77
--- NOTE | 2019-08-08 21:00 | NUR ---
A&O X 4, FAMILY AT BEDSIDE. DENIES PAIN/NAUSEA. FSBS 150. NO FURTHER NEEDS VOICED AT THIS TIME, CTM.
[2019-08-09] VITALS: BP 124/68
--- NOTE | 2019-08-09 02:18 | NUR ---
I have reviewed this patient and I concur with the Shift Assessment completed by the Licensed Practical Nurse today this shift.
[2019-08-09 05:04] LABS: BASOPHILS 0.6 % (0-2); EOSINOPHILS 0.9 % (0-7); HEMATOCRIT 29.8 % (36.0-48.0); HEMOGLOBIN 9.6 g/dL (12-16); IMMATURE GRANULOCYTES 1.9 % (0-5); LYMPHOCYTES 28.5 % (15-50); MCH 28.4 pg (26.0-34.0); MCHC 32.2 g/dL (31.0-37.0); MCV 88.2 fL (80.0-100.0); MEAN PLATELET VOLUME 9.7 fL (7.4-10.4); MONOCYTES 15.2 % (2-11); NEUTROPHILS 52.9 % (40-80); RBC 3.38 10x6/uL (4.00-5.40); RDW 17.7 % (11.5-14.5); WBC 3.2 10x3/uL (4.8-10.8)
[2019-08-09 05:18] LABS: PLATELET COUNT 149 10x3/uL (130-400)
[2019-08-09 05:26] LABS: ANION GAP 8.5 mmol/L (8-16); BILIRUBIN - TOTAL 0.52 mg/dL (0.2-1.3); CARBON DIOXIDE 27.4 mmol/L (21.0-32.0); CREATININE - SERUM 0.9 mg/dL (0.6-1.3); MAGNESIUM - SERUM 1.8 mg/dL (1.8-2.4); POTASSIUM - SERUM 3.9 mmol/L (3.5-5.1)
[2019-08-09 05:47] LABS: CALCIUM 6.4 mg/dL (8.5-10.1); PHOSPHOROUS 1.7 mg/dL (2.5-4.9)
[2019-08-09 08:44] VITALS: BP 130/70
--- NOTE | 2019-08-09 09:36 | NUR ---
SHE IS EATING BREAKFAST. HER DAUGHTER IS AT THE BEDSIDE. THE CALL [facility] HOME IS WITHIN REACH. SHE IS TO HAVE AN MRI TODAY.
[2019-08-09 12:08] VITALS: BP 121/66
[2019-08-09 16:07] VITALS: BP 134/62
[2019-08-09 20:00] VITALS: BP 130/68
[2019-08-10] VITALS: BP 108/51
[2019-08-10 04:00] VITALS: BP 109/54
[2019-08-10 05:44] LABS: BASOPHILS 0.3 % (0-2); EOSINOPHILS 1.2 % (0-7); HEMATOCRIT 31.6 % (36.0-48.0); HEMOGLOBIN 10.1 g/dL (12-16); IMMATURE GRANULOCYTES 2.6 % (0-5); LYMPHOCYTES 29.9 % (15-50); MCH 28.1 pg (26.0-34.0); MEAN PLATELET VOLUME 9.8 fL (7.4-10.4); MONOCYTES 12.2 % (2-11); NEUTROPHILS 53.8 % (40-80); PLATELET COUNT 163 10x3/uL (130-400); RBC 3.59 10x6/uL (4.00-5.40); RDW 17.8 % (11.5-14.5); WBC 3.5 10x3/uL (4.8-10.8)
[2019-08-10 05:52] LABS: ALBUMIN 2.3 g/dL (3.4-5.0); ANION GAP 9.1 mmol/L (8-16); BILIRUBIN - TOTAL 0.62 mg/dL (0.2-1.3); CARBON DIOXIDE 27.5 mmol/L (21.0-32.0); CREATININE - SERUM 0.9 mg/dL (0.6-1.3); MAGNESIUM - SERUM 1.6 mg/dL (1.8-2.4); POTASSIUM - SERUM 3.6 mmol/L (3.5-5.1); PROTEIN - SERUM 5.4 g/dL (6.4-8.2)
[2019-08-10 05:54] LABS: PHOSPHOROUS 2.5 mg/dL (2.5-4.9)
--- NOTE | 2019-08-10 06:00 | NUR ---
I have reviewed this patient and I concur with the Shift Assessment completed by the Licensed Practical Nurse today this shift.
[2019-08-10 09:28] VITALS: BP 159/66
[2019-08-10] MEDS ORDERED: NYSTATIN100000 UN4 PO (10:56)
[2019-08-10] MEDS ORDERED: LEVOFLOXACIN500 MG PO (10:57)
--- NOTE | 2019-08-10 12:47 | MORECARE ---
CASE MANAGEMENT DISCHARGE SUMMARY PATIENT: RODRIGO REVELES UNIT: [id number] ADM DATE: 07/31/19 AGE: 74 : 45 SEX: F ROOM/BED: D.2202 AUTHOR: EMELIA RUDOLPH PHYSICIAN: REFERRING PHYSICIAN: MYRIAM TRIPLETT MD DATE OF SERVICE: 08/10/19 Discharge Plan Patient Name: RODRIGO REVELES Facility: [facility]:[place] : 1945 Planned Disposition: Home or Self Care Anticipated Discharge Date: Discharge Date: Expected LOS: Initial Reviewer: [email or web address] Initial Review Date: 07/31/2019 Generated: 08/10/19 1:46 pm Comments DCP- Discharge Planning Updated by [email or web address]: Radha Cornell on 08/10/19 11:[address] Patient will be discharging home today with [facility] HH, IMM served and explained and spouse at bedside who will be her driver sales home. CM to follow and assist as needed DCP- Discharge Planning Updated by [email or web address]: Malaika Amaro on 08/08/19 2:[address] RETAIL BAKERY MANAGER Rehab following progress. Patient requesting that CM come back to room 08/08, to discuss further DC plans. Patient is requesting her billfold be brought to her room today. CM contacted Violeta, in ER to request same. Patient's wallet was brought to her room per admissions. DCP- Discharge Planning Updated by [email or web address]: Malaika Amaro on 08/03/19 3:[address] CM met with patient regarding DC needs/plans. Patient states she lives independently with her . PCP: Dr. Boyer. Pharmacy: [facility]. DME: walker, cane (does not use). Emergency contact: Irish Walker () [phone]. Denies need of HHS, Rehab, SNF. At time of DC, the patient's Irish Walker ([phone]) will drive her home. CM will assist PRN with DC plans. DCP- Discharge Planning Updated by [id number]: Radha Cornell on 08/02/19 12:[address] Patient Name: RODRIGO REVELES Admission Status: ER Accout number: [id number] Admission Date: 07-31-2019 : 1945 Admission Diagnosis:ACUTE PYELONEPHRITIS Attending: MYRIAM TRIPLETT Current LOS: 2 Anticipated DC Date: Planned Disposition: Home or Self Care Primary Insurance: MEDICARE A & B Discharge Planning Comments: CM met with patient to complete initial dc planning assessment. CM educated patient on the CM role and verbal consent given by patient to complete assessment. Patient lives at home with her spouse where she is independent with her care. At discharge patient plans to return home and feels this is a safe discharge. CM discussed availability of home health, rehab services, and medical equipment. She has a cane & a walker but does not use them. She also has a glucometer that she uses. 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 She did stated that Dr Randle took out a kidney stone on May 22. She has also had multiple dental procedures (teeth pulled, crowns, partials) last month at [facility] ( Dr Wood). She stated that she has been on 3 different abx. I let Emma know about her dental procedure.Patient denied known discharge needs at this time. CM will continue to follow and will assist as needed with dc plans/needs. Ocean Clam Boat Captain: Radha Cornell DCPIA - Discharge Planning Initial Assessment Updated by [email or web address]: Radha Cornell on 08/02/19 12:54 pm * Is the patient Alert and Oriented? Yes * How many steps to enter\exit or inside your home? 2/RAMP * PCP SHOAIB * Pharmacy [facility] * Preadmission Environment Home with Family * ADLs Independent * Equipment Cane Glucometer Rolling Walker * List name and contact numbers for known caregivers / representatives who currently or will assist patient after discharge: IRISH REVELES (SPOUSE) [phone] * Verbal permission to speak to the caregivers and representatives has been obtained from the patient. N/A * Community resources currently utilized None * Additional services required to return to the preadmission environment? No * Can the patient safely return to the preadmission environment? Yes * Has this patient been hospitalized within the prior 30 days at any hospital? No Coverage Notice Reviewer: [id number] - Radha Cornell Notice Issued Date-Time: 08/10/2019 12:35 Notice Type: IM Discharge Notice Notice Delivered To: Patient Relationship to Patient: Cotton Gin Yard Supervisor Name: Delivery Method: HAND - Hand Delivered Nuha Days: Prior Verbal Notification: Recipient Understood Notice: Yes Recipient Signature: Yes Med Rec Note Co-signed by Attending: Coverage Notice Comment: imm served and explained Reviewer: [id number] Jami Cornell Notice Issued Date-Time: 08/10/2019 12:35 Notice Type: Patient Choice Letter Notice Delivered To: Patient Relationship to Patient: Cotton Gin Yard Supervisor Name: Delivery Method: HAND - Hand Delivered Nuha Days: Prior Verbal Notification: Recipient Understood Notice: Yes Recipient Signature: Yes Med Rec Note Co-signed by Attending: Coverage Notice Comment: ivan for kimmy hh Last DP export: 08/08/19 3:00 pm Patient Name: RODRIGO REVELES Page 64588 at 1247 All edits/amendments must be made on the electronic document DICTATION DATE: 08/10/19 1246 ASSEMBLER MOTOR VEHICLE: CHAVEZ 08/10/19 1246 RPT#: [id number] DC DATE: STATUS: ADM IN [facility] [address] [place] [address] END OF REPORT
--- NOTE | 2019-08-10 12:54 | MORECARE ---
CASE MANAGEMENT DISCHARGE SUMMARY PATIENT: RODRIGO REVELES UNIT: [id number] ADM DATE: 07/31/19 AGE: 74 : 45 SEX: F ROOM/BED: D.2200 AUTHOR: EMELIA RUDOLPH PHYSICIAN: REFERRING PHYSICIAN: MYRIAM TRIPLETT MD DATE OF SERVICE: 08/10/19 Discharge Plan Patient Name: RODRIGO REVELES Facility: [facility]:[place] : 1945 Planned Disposition: Home or Self Care Anticipated Discharge Date: Discharge Date: Expected LOS: Initial Reviewer: [id number] Initial Review Date: 07/31/2019 Generated: 08/10/19 1:54 pm Comments DCP- Discharge Planning Updated by [email or web address]: Radha Cornell on 08/10/19 11:[address] Patient will be discharging home today with [facility], IMM served and explained and spouse at bedside who will be her class a regional truck driver home. CM to follow and assist as needed DCP- Discharge Planning Updated by [email or web address]: Malaika Amaro on 08/08/19 2:[address] LEGAL DOCUMENT ASSISTANT Rehab following progress. Patient requesting that CM come back to room 08/08, to discuss further DC plans. Patient is requesting her billfold be brought to her room today. CM contacted Violeta, in ER to request same. Patient's wallet was brought to her room per admissions. DCP- Discharge Planning Updated by [email or web address]: Malaika Amaro on 08/03/19 3:[address] CM met with patient regarding DC needs/plans. Patient states she lives independently with her . PCP: Dr. Boyer. Pharmacy: [facility]. DME: walker, cane (does not use). Emergency contact: Irish Walker () [phone]. Denies need of HHS, Rehab, SNF. At time of DC, the patient's Irish Walker ([phone]) will drive her home. CM will assist PRN with DC plans. DCP- Discharge Planning Updated by [email or web address]: Radha Cornell on 08/02/19 12:[address] Patient Name: RODRIGO REVELES Admission Status: ER Accout number: [id number] Admission Date: 07-31-2019 : 1945 Admission Diagnosis:ACUTE PYELONEPHRITIS Attending: MYRIAM TRIPLETT Current LOS: 2 Anticipated DC Date: Planned Disposition: Home or Self Care Primary Insurance: MEDICARE A & B Discharge Planning Comments: CM met with patient to complete initial dc planning assessment. CM educated patient on the CM role and verbal consent given by patient to complete assessment. Patient lives at home with her spouse where she is independent with her care. At discharge patient plans to return home and feels this is a safe discharge. CM discussed availability of home health, rehab services, and medical equipment. She has a cane & a walker but does not use them. She also has a glucometer that she uses. 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 She did stated that Dr Randle took out a kidney stone on May 22. She has also had multiple dental procedures (teeth pulled, crowns, partials) last month at [facility] ( Dr Wood). She stated that she has been on 3 different abx. I let Emma know about her dental procedure.Patient denied known discharge needs at this time. CM will continue to follow and will assist as needed with dc plans/needs. Environmental Property Assessor: Radha Cornell DCPIA - Discharge Planning Initial Assessment Updated by [email or web address]: Radha Cornell on 08/02/19 12:54 pm * Is the patient Alert and Oriented? Yes * How many steps to enter\exit or inside your home? 2/RAMP * PCP SHOAIB * Pharmacy [facility] * Preadmission Environment Home with Family * ADLs Independent * Equipment Cane Glucometer Rolling Walker * List name and contact numbers for known caregivers / representatives who currently or will assist patient after discharge: IRISH REVELES (SPOUSE) [phone] * Verbal permission to speak to the caregivers and representatives has been obtained from the patient. N/A * Community resources currently utilized None * Additional services required to return to the preadmission environment? No * Can the patient safely return to the preadmission environment? Yes * Has this patient been hospitalized within the prior 30 days at any hospital? No External Providers External Provider: [facility] Next Contact Date: Service Request Date: Service Type: Resolution: Reviewer: Comments: Coverage Notice Reviewer: [email or web address] Jami Cornell Notice Issued Date-Time: 08/10/2019 12:35 Notice Type: IM Discharge Notice Notice Delivered To: Patient Relationship to Patient: Narcotics And/Or Vice Detective Name: Delivery Method: HAND - Hand Delivered Nuha Days: Prior Verbal Notification: Recipient Understood Notice: Yes Recipient Signature: Yes Med Rec Note Co-signed by Attending: Coverage Notice Comment: imm served and explained Reviewer: [id number] Jami Cornell Notice Issued Date-Time: 08/10/2019 12:35 Notice Type: Patient Choice Letter Notice Delivered To: Patient Relationship to Patient: Narcotics And/Or Vice Detective Name: Delivery Method: HAND - Hand Delivered Nuha Days: Prior Verbal Notification: Recipient Understood Notice: Yes Recipient Signature: Yes Med Rec Note Co-signed by Attending: Coverage Notice Comment: ivan for kimmy pagan Last DP export: 08/10/19 11:47 am Patient Name: RODRIGO REVELES Page 52152 at 1254 All edits/amendments must be made on the electronic document DICTATION DATE: 08/10/19 1254 DANCER OR CHOREOGRAPHER: CHAVEZ 08/10/19 1254 RPT#: [id number] DC DATE: STATUS: ADM IN [facility] [address] [place] [address] END OF REPORT
[2019-08-10 13:43] VITALS: BP 114/84
--- NOTE | 2019-08-10 14:04 | NUR ---
IV THERAPY DC'ED FROM LEFT WRIST TIP INTACT. AND PT VERBALIZED UNDERSTANDING OF DISCHARGE INSTRUCTIONS. MET AT ER WITH PATIENT IN WHEELCHAIR.
--- NOTE | 2019-08-10 17:35 | MORECARE ---
CASE MANAGEMENT DISCHARGE SUMMARY PATIENT: RODRIGO REVELES UNIT: [id number] ADM DATE: 07/31/19 AGE: 74 : 45 SEX: F ROOM/BED: D.2200 AUTHOR: RONNI,DOC PHYSICIAN: REFERRING PHYSICIAN: MYRIAM TRIPLETT MD DATE OF SERVICE: 08/10/19 Discharge Plan Patient Name: RODRIGO REVELES Facility: [facility]:[place] : 1945 Planned Disposition: Home or Self Care Anticipated Discharge Date: Discharge Date: 08/10/2019 Expected LOS: 0 Initial Reviewer: [id number] Initial Review Date: 07/31/2019 Generated: 08/10/19 6:34 pm Comments DCP- Discharge Planning Updated by [email or web address]: Radha Cornell on 08/10/19 11:[address] Patient will be discharging home today with Kimmy , IMM served and explained and spouse at bedside who will be her horse and wagon driver home. CM to follow and assist as needed DCP- Discharge Planning Updated by [email or web address]: Malaika Amaro on 08/08/19 2:[address] SALES AND OPERATIONS TRAINEE Rehab following progress. Patient requesting that CM come back to room 08/08, to discuss further DC plans. Patient is requesting her billfold be brought to her room today. CM contacted Violeta, in ER to request same. Patient's wallet was brought to her room per admissions. DCP- Discharge Planning Updated by [email or web address]: Malaika Amaro on 08/03/19 3:[address] CM met with patient regarding DC needs/plans. Patient states she lives independently with her . PCP: Dr. Boyer. Pharmacy: [email or web address]. DME: walker, cane (does not use). Emergency contact: Irish Walker () [phone]. Denies need of HHS, Rehab, SNF. At time of DC, the patient's Irish Walker ([phone]) will drive her home. CM will assist PRN with DC plans. DCP- Discharge Planning Updated by [email or web address]: Radha Cornell on 08/02/19 12:[address] Patient Name: RODRIGO REVELES Admission Status: ER Accout number: [id number] Admission Date: 07-31-2019 : 1945 Admission Diagnosis:ACUTE PYELONEPHRITIS Attending: MYRIAM TRIPLETT Current LOS: 2 Anticipated DC Date: Planned Disposition: Home or Self Care Primary Insurance: MEDICARE A & B Discharge Planning Comments: CM met with patient to complete initial dc planning assessment. CM educated patient on the CM role and verbal consent given by patient to complete assessment. Patient lives at home with her spouse where she is independent with her care. At discharge patient plans to return home and feels this is a safe discharge. CM discussed availability of home health, rehab services, and medical equipment. She has a cane & a walker but does not use them. She also has a glucometer that she uses. 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 She did stated that Dr Randle took out a kidney stone on May 22. She has also had multiple dental procedures (teeth pulled, crowns, partials) last month at [facility] ( Dr Wood). She stated that she has been on 3 different abx. I let Emma know about her dental procedure.Patient denied known discharge needs at this time. CM will continue to follow and will assist as needed with dc plans/needs. Motor Vehicles Inspector: Radha Cornell DCPIA - Discharge Planning Initial Assessment Updated by [email or web address]: Radha Cornell on 08/02/19 12:54 pm * Is the patient Alert and Oriented? Yes * How many steps to enter\exit or inside your home? 2/RAMP * PCP SHOAIB * Pharmacy [facility] * Preadmission Environment Home with Family * ADLs Independent * Equipment Cane Glucometer Rolling Walker * List name and contact numbers for known caregivers / representatives who currently or will assist patient after discharge: IRISH REVELES (SPOUSE) [phone] * Verbal permission to speak to the caregivers and representatives has been obtained from the patient. N/A * Community resources currently utilized None * Additional services required to return to the preadmission environment? No * Can the patient safely return to the preadmission environment? Yes * Has this patient been hospitalized within the prior 30 days at any hospital? No Coverage Notice Reviewer: [id number] - Radha Cornell Notice Issued Date-Time: 08/10/2019 12:35 Notice Type: IM Discharge Notice Notice Delivered To: Patient Relationship to Patient: Valve Setter Name: Delivery Method: HAND - Hand Delivered Nuha Days: Prior Verbal Notification: Recipient Understood Notice: Yes Recipient Signature: Yes Med Rec Note Co-signed by Attending: Coverage Notice Comment: imm served and explained Reviewer: [id number] Jami Cornell Notice Issued Date-Time: 08/10/2019 12:35 Notice Type: Patient Choice Letter Notice Delivered To: Patient Relationship to Patient: Valve Setter Name: Delivery Method: HAND - Hand Delivered Nuha Days: Prior Verbal Notification: Recipient Understood Notice: Yes Recipient Signature: Yes Med Rec Note Co-signed by Attending: Coverage Notice Comment: ivan for kimmy Last DP export: 08/10/19 11:54 am Patient Name: RODRIGO REVELES Page 62005 at 1735 All edits/amendments must be made on the electronic document DICTATION DATE: 08/10/191733 SENIOR PORTFOLIO MANAGER: CHAVEZ 08/10/19 1734 RPT#: [id number] DC DATE:08/10/19 STATUS: DIS IN [facility] [address] [place] [address] END OF REPORT
== END 2019-08-10 14:05 | disposition home health service (06) | DRG 871 ==
LOC: D.ER 13:43 → D.MS 17:21
PROVIDERS: Emergency Medicine; Family Medicine; Internal Medicine Hematology & Oncology; Internal Medicine Nephrology; ADMIT Internal Medicine Nephrology; ATTEND Internal Medicine Nephrology
DX: A41.89 Other specified sepsis (principal); G93.41 Metabolic encephalopathy; N10 Acute pyelonephritis; E87.2 Acidosis; N39.0 Urinary tract infection, site not specified; D72.819 Decreased white blood cell count, unspecified; D69.6 Thrombocytopenia, unspecified; E11.65 Type 2 diabetes mellitus with hyperglycemia; E11.22 Type 2 diabetes mellitus with diabetic chronic kidney disease; I12.9 Hypertensive chronic kidney disease with stage 1 through stage 4 chronic kidney disease, or unspecified chronic kidney disease; N18.9 Chronic kidney disease, unspecified; M79.7 Fibromyalgia; E78.5 Hyperlipidemia, unspecified; B96.1 Klebsiella pneumoniae [K. pneumoniae] as the cause of diseases classified elsewhere; G43.109 Migraine with aura, not intractable, without status migrainosus

== ENCOUNTER 2019-10-11 11:52 | Inpatient (IN) | payer MEDICARE, OTHER ==
[~2019-10-11] VITALS: Ht 157.5 cm; Wt 60.3 kg
[~2019-10-11 11:52] MED LIST: ASPIRIN81 MG PO; BUMEX2 MG PO; CRESTOR5 MG PO; GLUCOPHAGE1000 MG PO; LEVOFLOXACIN500 MG PO; NYSTATIN100000 UN4 PO; PLAVIX75 MG PO; PREDNISONE5 MG PO; TOPROL XL50 MG PO; ULTRAM50 MG PO; VITAMIN B-12500 MCG PO; VITAMIN D1000 UNIT PO; ZOFRAN ODT4 MG/UDTAB PO; ZOLOFT50 MG PO; ZYLOPRIM100 MG PO
[2019-10-11] MEDS ORDERED: CIPRO500 MG PO (12:26)
[2019-10-11] MEDS ORDERED: FLOMAX0.4 MG PO (12:28)
[2019-10-11] MEDS ORDERED: TYLENOL W/CODEI1 TAB PO (12:28)
[2019-10-11 12:29] LABS: CALC OSMOLALITY 288 mosm/kg (275-300); CALCIUM 10.5 mg/dL (8.5-10.1); CARBON DIOXIDE 30.1 mmol/L (21.0-32.0); CHLORIDE - SERUM 104 mmol/L (98-107); CREATININE - SERUM 1.2 mg/dL (0.6-1.3); POTASSIUM - SERUM 3.9 mmol/L (3.5-5.1); SODIUM 141 mmol/L (136-145); UREA NITROGEN 22 mg/dL (7-18); eGFR NON AFRICAN AMERICAN 46 mL/min (90-120)
[2019-10-11 12:31] LABS: GLUCOSE 190 mg/dL (74-106)
[2019-10-11 12:35] VITALS: BP 173/89
[2019-10-11 12:37] LABS: APTT 26.7 SECONDS (22.8-39.4); INR 1.04 (0.85-1.17); PROTIME 13.6 SECONDS (11.6-15.0)
[2019-10-11 12:39] LABS: BASOPHILS 0.4 % (0-2); EOSINOPHILS 1.5 % (0-7); HEMATOCRIT 37.6 % (36.0-48.0); HEMOGLOBIN 12.1 g/dL (12-16); IMMATURE GRANULOCYTES 0.2 % (0-5); LYMPHOCYTES 12.4 % (15-50); MCH 29.9 pg (26.0-34.0); MCHC 32.2 g/dL (31.0-37.0); MCV 92.8 fL (80.0-100.0); MEAN PLATELET VOLUME 9.6 fL (7.4-10.4); MONOCYTES 8.8 % (2-11); NEUTROPHILS 76.7 % (40-80); PLATELET COUNT 168 10x3/uL (130-400); RBC 4.05 10x6/uL (4.00-5.40); RDW 14.2 % (11.5-14.5); WBC 5.2 10x3/uL (4.8-10.8)
[2019-10-11 12:44] LABS: ALBUMIN 3.3 g/dL (3.4-5.0); ALKALINE PHOSPHATASE 221 U/L (30-120); ALT (SGPT) 123 U/L (10-68); BILIRUBIN - TOTAL 0.84 mg/dL (0.2-1.3); CKMB 0.7 U/L (0.0-3.6); CREATINE KINASE 22 UL (21-215); LIPASE 418 U/L (73-393); MAGNESIUM - SERUM 1.9 mg/dL (1.8-2.4)
[2019-10-11 12:46] LABS: TROPONIN-I < 0.017 ng/mL (0.000-0.060)
[2019-10-11 14:12] VITALS: BP 149/76
[2019-10-11 15:33] VITALS: BP 139/68
[2019-10-11 16:07] VITALS: BP 138/65
--- NOTE | 2019-10-11 16:07 | NUR ---
PT LAYING IN BED. NO DISTRESS NOTED. COLOR WNL FOR RACE. ADVISED PT OF NPO STATUS AT THIS TIME. WILL CONTINUE TO MONITOR.
[2019-10-11 17:40] VITALS: BP 141/77
--- NOTE | 2019-10-11 18:39 | NUR ---
CALLED REPORT TO ANTONELLA GARCIA
[2019-10-12] VITALS: BP 132/45
[2019-10-12 03:16] LABS: BASOPHILS 0.7 % (0-2); EOSINOPHILS 2.3 % (0-7); HEMATOCRIT 32.9 % (36.0-48.0); HEMOGLOBIN 10.5 g/dL (12-16); IMMATURE GRANULOCYTES 0.3 % (0-5); LYMPHOCYTES 23.2 % (15-50); MCH 29.3 pg (26.0-34.0); MCHC 31.9 g/dL (31.0-37.0); MCV 91.9 fL (80.0-100.0); MEAN PLATELET VOLUME 9.6 fL (7.4-10.4); MONOCYTES 11.4 % (2-11); NEUTROPHILS 62.1 % (40-80); PLATELET COUNT 157 10x3/uL (130-400); RBC 3.58 10x6/uL (4.00-5.40); RDW 14.3 % (11.5-14.5)
[2019-10-12 03:17] LABS: WBC 3.1 10x3/uL (4.8-10.8)
[2019-10-12 03:38] LABS: ALBUMIN 2.6 g/dL (3.4-5.0); ALKALINE PHOSPHATASE 395 U/L (30-120); BILIRUBIN - TOTAL 0.75 mg/dL (0.2-1.3); CALCIUM 8.5 mg/dL (8.5-10.1); CARBON DIOXIDE 30.2 mmol/L (21.0-32.0); CHLORIDE - SERUM 109 mmol/L (98-107); CREATININE - SERUM 0.9 mg/dL (0.6-1.3); MAGNESIUM - SERUM 1.6 mg/dL (1.8-2.4); POTASSIUM - SERUM 4.3 mmol/L (3.5-5.1); PROTEIN - SERUM 5.7 g/dL (6.4-8.2); SODIUM 142 mmol/L (136-145); eGFR NON AFRICAN AMERICAN 65 mL/min (90-120)
[2019-10-12 03:40] LABS: ALT (SGPT) 478 U/L (10-68); CALC OSMOLALITY 283 mosm/kg (275-300); GLUCOSE 107 mg/dL (74-106); LIPASE 222 U/L (73-393); TROPONIN-I < 0.017 ng/mL (0.000-0.060); UREA NITROGEN 16 mg/dL (7-18)
[2019-10-12 03:54] VITALS: BMI 24.4
[2019-10-12 05:10] VITALS: BP 152/52
--- NOTE | 2019-10-12 07:37 | NUR ---
PT UP AT SINK WASHING UP THIS MORNING, STATES NO PAIN AT THIS TIME. CL IN REACH, BED IN LOWEST POSITION, ADVISED PT I WILL ADMINISTER SCHEDULE MEDICATIONS THIS MORNING WITH SIP OF WATER. NO NEEDS VOICED, CONTINUE WITH PLAN OF CARE
[2019-10-12 08:06] LABS: BILIRUBIN NEGATIVE (NEGATIVE); GLUCOSE NEGATIVE (NEGATIVE); KETONE NEGATIVE (NEGATIVE); NITRITE NEGATIVE (NEGATIVE); UROBILINOGEN NORMAL (NORMAL)
[2019-10-12 09:12] VITALS: BP 129/72
[2019-10-12 11:31] LABS: INR 1.01 (0.85-1.17); PROTIME 13.2 SECONDS (11.6-15.0)
[2019-10-12 13:21] VITALS: BP 131/44
[2019-10-12 13:39] VITALS: Ht 157.5 cm; Wt 60.3 kg
--- NOTE | 2019-10-12 13:54 | NUR ---
JAYA REF [id number] LOT [id number] EXP 04/04/24
[2019-10-12] MEDS ORDERED: ULTRAM50 MG PO (14:56)
[2019-10-12 15:05] VITALS: BP 135/51
--- NOTE | 2019-10-12 18:21 | NUR ---
I have reviewed this patient and I concur with the Shift Assessment completed by the Licensed Practical Nurse today this shift.
[2019-10-12 20:00] VITALS: BP 123/47
--- NOTE | 2019-10-12 20:00 | NUR ---
PATIENT RESTING IN BED WATCHING TV. NO S/S OF ACUTE DISTRESS. NO C/O AT THIS TIME. PATIENT HAS LEFT AC, 1/2 NORMAL SALINE @ 75 ML/HR. IV IS PATENT WITHOUT REDNESS, SWELLING, OR TENDERNESS. PATIENT HAS SAID THAT WHEN HE PAIN GETS BAD THAT IT IS IN THE RIGHT LOWER QUARDRANT. PATIENT STATES THAT IT ONLY GETS BAD WHEN SHE GETS UP OR MOVES. CONNER WALLACE, GAVE HER A TRAMADOL BEFORE LEAVING. PATIENT IS UP ADLIB TO THE BATHROOM. CALL LIGHT WITHIN REACH. WILL CONTINUE TO MONITOR.
[2019-10-13] VITALS: BP 110/47
--- NOTE | 2019-10-13 02:05 | NUR ---
I have reviewed this patient and I concur with the Shift Assessment completed by the Licensed Practical Nurse today this shift.
[2019-10-13 04:00] VITALS: BP 113/57
[2019-10-13 05:55] LABS: BASOPHILS 0 % (0-2); EOSINOPHILS 0.2 % (0-7); HEMATOCRIT 31.5 % (36.0-48.0); HEMOGLOBIN 9.9 g/dL (12-16); IMMATURE GRANULOCYTES 0.5 % (0-5); LYMPHOCYTES 12.1 % (15-50); MCH 28.5 pg (26.0-34.0); MCHC 31.4 g/dL (31.0-37.0); MCV 90.8 fL (80.0-100.0); MEAN PLATELET VOLUME 9.7 fL (7.4-10.4); MONOCYTES 9.6 % (2-11); NEUTROPHILS 77.6 % (40-80); PLATELET COUNT 166 10x3/uL (130-400); RBC 3.47 10x6/uL (4.00-5.40); RDW 14.3 % (11.5-14.5)
[2019-10-13 06:26] LABS: INR 1.1 (0.85-1.17); PROTIME 14.2 SECONDS (11.6-15.0)
[2019-10-13 06:35] LABS: WBC 4.1 10x3/uL (4.8-10.8)
[2019-10-13 06:48] LABS: ALBUMIN 2.6 g/dL (3.4-5.0); ANION GAP 11.5 mmol/L (8-16); BILIRUBIN - TOTAL 0.44 mg/dL (0.2-1.3); CALCIUM 8.1 mg/dL (8.5-10.1); CARBON DIOXIDE 24.7 mmol/L (21.0-32.0); MAGNESIUM - SERUM 1.6 mg/dL (1.8-2.4); POTASSIUM - SERUM 4.2 mmol/L (3.5-5.1); PROTEIN - SERUM 5.5 g/dL (6.4-8.2)
--- NOTE | 2019-10-13 07:15 | NUR ---
REC'D IN BED AWAKE AND ALERT. RESP EVEN AND UNLABORED WITH NO DISTRESS NOTED. CAN EXPRESS NEEDS AND WANTS. NO C/O NOTED OR VOICED. ASSESSMENT COMPLETED. C/L IN REACH AT BEDSIDE. C/L IN REACH AT BEDSIDE.
--- NOTE | 2019-10-13 08:00 | OP ---
PATIENT NAME: RODRIGO REVELES MEDICAL RECORD: [id number] :[birth year] LOCATION:D.[id number] ADMISSION DATE:10/11/19 SURGEON: SD WEBB MD DATE OF OPERATION: 10/12/2019 PREOPERATIVE DIAGNOSES: 1. Acute cholecystitis. 2. Diabetes mellitus. POSTOPERATIVE DIAGNOSES: 1. Acute cholecystitis. 2. Diabetes mellitus. PROCEDURE: Laparoscopic cholecystectomy. SURGEON: Sd Webb MD REPORT OF PROCEDURE: The patient's abdomen was prepped and draped in sterile fashion. A cutdown was made on the superior aspect of the umbilicus. 0 Vicryls were placed in the fascia bilaterally and the fascia was incised with 15 blade. I then bluntly entered the peritoneal cavity and placed a 12 mm Jhonny port. Under direct visualization, a 5 mm trocar was placed in the epigastrium and two more 5 mm trocars were placed in the right subcostal region. The gallbladder was grasped and elevated. There were no signs of inflammatory changes, but the gallbladder was markedly distended and folded over on itself. It extended quite far past the edge of the liver. The gallbladder was grasped and elevated and we were able to dissect out the cystic artery and cystic duct. These structures were clipped proximally and distally and ligated in standard fashion. The gallbladder was taken off the liver bed using electrocautery and placed into an EndoCatch bag. Any bleeding from the liver bed was treated with electrocautery. I then instilled some Luther to the liver bed. The right upper quadrant had been irrigated out and care was taken to assure there was no sign of any surgical bleeding or bile leakage. The ports and insufflation were then removed and the gallbladder was taken out through the umbilicus. The umbilical fascia was closed with interrupted 0 Vicryls times 3. The wounds were irrigated out with normal saline and infused with 10 mL of 0.25% Marcaine with epinephrine. The skin incisions were all closed with subcutaneous 5-0 Monocryl and dressed appropriately. COMPLICATIONS: None. CONDITION: Stable. ANESTHESIA: General endotracheal and local. BLOOD LOSS: 50 mL. NTS:[id number] Voice Confirmation ID: [id number] DOCUMENT ID: [id number] OPERATIVE REPORT [id number] RODRIGO REVELES SD WEBB MD at 0800 CC: [id number] DICTATION DATE: 10/12/19 1442 LIGHT RAIL SIGNAL TECHNICIAN: 10/12/19 2254 ADM IN [facility] [address] [place] [id number]
[2019-10-13 08:55] VITALS: BP 131/52
--- NOTE | 2019-10-13 10:01 | MORECARE ---
CASE MANAGEMENT DISCHARGE SUMMARY PATIENT: RODRIGO REVELES UNIT: [id number] ADM DATE: 10/11/19 AGE: 74 : 45 SEX: F ROOM/BED: D.2224 AUTHOR: EMELIA RUDOLPH PHYSICIAN: REFERRING PHYSICIAN: TERESA BEE MD DATE OF SERVICE: 10/13/19 Discharge Plan Patient Name: RODRIGO REVELES Facility: [facility]:[place] : 1945 Planned Disposition: Home Anticipated Discharge Date: Discharge Date: Expected LOS: Initial Reviewer: [email or web address] Initial Review Date: 10/11/2019 Generated: 10/13/19 11:00 am DCPIA - Discharge Planning Initial Assessment Updated by [email or web address]: Jenn Mason on 10/13/19 9:58 am * Is the patient Alert and Oriented? Yes * PCP SHOAIB * Pharmacy [facility] * Preadmission Environment Home with Family * ADLs Independent * Other Equipment SC,WALKER * Community resources currently utilized None * Additional services required to return to the preadmission environment? No * Can the patient safely return to the preadmission environment? Yes * Has this patient been hospitalized within the prior 30 days at any hospital? No Patient Name: RODRIGO REVELES Page 02179 at 1001 All edits/amendments must be made on the electronic document DICTATION DATE: 10/13/19 1000 FURNITURE BUILDER: CHAVEZ 10/13/19 1000 RPT#: [id number] DC DATE: STATUS: ADM IN [facility] [address] [place] [address] END OF REPORT
--- NOTE | 2019-10-13 10:09 | MORECARE ---
CASE MANAGEMENT DISCHARGE SUMMARY PATIENT: RODRIGO REVELES UNIT: [id number] ADM DATE: 10/11/19 AGE: 74 : 45 SEX: F ROOM/BED: D.2224 AUTHOR: RONNIDOC PHYSICIAN: REFERRING PHYSICIAN: TERESA BEE MD DATE OF SERVICE: 10/13/19 Discharge Plan Patient Name: RODRIGO REVELES Facility: [facility]:[place] : 1945 Planned Disposition: Home Anticipated Discharge Date: Discharge Date: Expected LOS: Initial Reviewer: [email or web address] Initial Review Date: 10/11/2019 Generated: 10/13/19 11:08 am Comments DCP- Discharge Planning Updated by [email or web address]: Jenn Mason on 10/13/19 9:[address] Patient Name: RODRIGO REVELES Admission Status: ER Accout number: [id number] Admission Date: 10-11-2019 : 1945 Admission Diagnosis: Attending: LOUISE Current LOS: 2 Anticipated DC Date: Planned Disposition: Home Primary Insurance: MEDICARE A & B Discharge Planning Comments: CM met with patient at bedside after explaining CM role and obtaining verbal consent. CM discussed availability / needs of home health, REHAB and medical equipment. STATES WAS JUST DC'D FROM PT AND [facility] PRIOR TO VISIT. DENIES NEED FOR HH AND EQUIPMENT. IMM SIGNED. AT BEDSIDE. ANTICIPATE DC SOON. Chef Manager: Jenn Mason DCPIA - Discharge Planning Initial Assessment Updated by [email or web address]: Jenn Mason on 10/13/19 9:58 am * Is the patient Alert and Oriented? Yes * PCP SHOAIB * Pharmacy [facility] * Preadmission Environment Home with Family * ADLs Independent * Other Equipment SC,WALKER * Community resources currently utilized None * Additional services required to return to the preadmission environment? No * Can the patient safely return to the preadmission environment? Yes * Has this patient been hospitalized within the prior 30 days at any hospital? No Coverage Notice Reviewer: [email or web address] - Jenn Mason Notice Issued Date-Time: 10/13/2019 10:01 Notice Type: IM Discharge Notice Notice Delivered To: Relationship to Patient: Air Brush Operator Name: Delivery Method: HAND - Hand Delivered Nuha Days: Prior Verbal Notification: Recipient Understood Notice: Yes Recipient Signature: Yes Med Rec Note Co-signed by Attending: Coverage Notice Comment: Last DP export: 10/13/19 9:01 am Patient Name: RODRIGO REVELES Page 31399 at 1009 All edits/amendments must be made on the electronic document DICTATION DATE: 10/13/19 1009 INVESTIGATOR VICE: CHAVEZ 10/13/19 1009 RPT#: [id number] DC DATE: STATUS: ADM IN [facility] [address] [place] [address] END OF REPORT
--- NOTE | 2019-10-13 10:52 | NUR ---
DC HOME AT THIS TIME IN STABLE CONDITION. NO DISTRES NOTED. IV DC. AT BEDSIDE.
--- NOTE | 2019-10-13 11:37 | NUR ---
PTCALLED AT DR BEE ([facility]) REQUEST TO INFORM PT TO HOLD CRESTOR AND FOLLOW UP WITH SCIENTIFIC PROCESS OPERATOR FOR LAB WORK IN THE NEXT 2-3 DAYS
--- NOTE | 2019-10-14 13:02 | MORECARE ---
CASE MANAGEMENT DISCHARGE SUMMARY PATIENT: RODRIGO REVELES UNIT: [id number] ADM DATE: 10/11/19 AGE: 74 : 45 SEX: F ROOM/BED: D.2224 AUTHOR: RONNIDOC PHYSICIAN: REFERRING PHYSICIAN: TERESA BEE MD DATE OF SERVICE: 10/14/19 Discharge Plan Patient Name: RODRIGO REVELES Facility: [facility]:[place] : 1945 Planned Disposition: Home Anticipated Discharge Date: Discharge Date: 10/13/2019 Expected LOS: Initial Reviewer: [id number] Initial Review Date: 10/11/2019 Generated: 10/14/19 2:01 pm Comments DCP- Discharge Planning Updated by [id number]: Jenn Mason on 10/13/19 9:[address] Patient Name: RODRIGO REVELES Admission Status: ER Accout number: [id number] Admission Date: 10-11-2019 : 1945 Admission Diagnosis: Attending: LOUISE Current LOS: 2 Anticipated DC Date: Planned Disposition: Home Primary Insurance: MEDICARE A & B Discharge Planning Comments: CM met with patient at bedside after explaining CM role and obtaining verbal consent. CM discussed availability / needs of home health, REHAB and medical equipment. STATES WAS JUST DC'D FROM PT AND [facility] PRIOR TO VISIT. DENIES NEED FOR HH AND EQUIPMENT. IMM SIGNED. AT BEDSIDE. ANTICIPATE DC SOON. Rental Car Porter: Jenn Mason DCPIA - Discharge Planning Initial Assessment Updated by [id number]: Jenn Mason on 10/13/19 9:58 am * Is the patient Alert and Oriented? Yes * PCP [facility] * Pharm[facility] * Preadmission Environment Home with Family * ADLs Independent * Other Equipment [place],WALKER * Community resources currently utilized None * Additional services required to return to the preadmission environment? No * Can the patient safely return to the preadmission environment? Yes * Has this patient been hospitalized within the prior 30 days at any hospital? No Coverage Notice Reviewer: [id number] - Jenn Mason Notice Issued Date-Time: 10/13/2019 10:01 Notice Type: IM Discharge Notice Notice Delivered To: Relationship to Patient: Coat Joiner Lockstitch Name: Delivery Method: HAND - Hand Delivered Nuha Days: Prior Verbal Notification: Recipient Understood Notice: Yes Recipient Signature: Yes Med Rec Note Co-signed by Attending: Coverage Notice Comment: Last DP export: 10/13/19 9:09 am Patient Name: RODRIGO REVELES Page [id number] at 1302 All edits/amendments must be made on the electronic document DICTATION DATE: 10/14/19 1302 STUDENT FINANCE ADVISOR: CHAVEZ 10/14/19 1302 RPT#: [id number] DC DATE:10/13/19 STATUS: DIS IN [facility] [address] [place] [address] END OF REPORT
== END 2019-10-13 10:55 | disposition home or self-care (01) | DRG 419 ==
LOC: D.ER 11:52 → D.MS 18:19
PROVIDERS: Family Medicine; Surgery; ADMIT Family Medicine; ATTEND Family Medicine
PROC: 0FT44ZZ Resection of Gallbladder, Percutaneous Endoscopic Approach (ICD-10-PCS; principal; 2019-10-12 11:45)
DX: K81.0 Acute cholecystitis (principal); E11.65 Type 2 diabetes mellitus with hyperglycemia; E78.5 Hyperlipidemia, unspecified; I12.9 Hypertensive chronic kidney disease with stage 1 through stage 4 chronic kidney disease, or unspecified chronic kidney disease; N18.9 Chronic kidney disease, unspecified; D86.9 Sarcoidosis, unspecified; H40.9 Unspecified glaucoma; M79.7 Fibromyalgia; I34.1 Nonrheumatic mitral (valve) prolapse

== ENCOUNTER → 2020-06-05 08:23 | Outpatient (CLI) | payer MEDICARE, OTHER ==
[2019-10-12 13:39] VITALS: BMI 24.3
[~2020-06-05 08:23] MED LIST changes: +CIPRO500 MG PO; +FLOMAX0.4 MG PO; +TYLENOL W/CODEI1 TAB PO
== END | disposition home or self-care (01) ==
LOC: D.HCCECHO 08:23
PROVIDERS: ATTEND Internal Medicine Cardiovascular Disease
DX: I25.10 Atherosclerotic heart disease of native coronary artery without angina pectoris (principal)

== ENCOUNTER 2020-08-21 11:30 | Outpatient (CLI) | payer MEDICARE, OTHER ==
[2019-10-12 13:39] VITALS: BMI 24.3
== END 2020-08-21 23:59 ==
LOC: D.MAMMO 11:30
PROVIDERS: ATTEND Nurse Practitioner
DX: Z12.31 Encounter for screening mammogram for malignant neoplasm of breast (principal)